=== PATIENT | female | born 1940 | race Caucasian/White ===

== ENCOUNTER 2022-07-30 17:14 | Inpatient (IN) ==
[2022-07-30 18:18] LABS: Basophils # 0.1 10*3/uL (0.0-0.2); Basophils % 0.2 % (0.0-0.8); Eosinophils % 0.2 % (0.00-10.9); Hematocrit 43.2 VOL% (35.7-47.0); Hemoglobin 13.9 GM/DL (12.0-16.0); Immature Granulocytes % 0.7 %; Immature Granulocytes Absolute 0.15 #; Lymphocytes # 0.5 10*3/uL (1.4-4.0); Lymphocytes % 2.1 % (21.3-54.2); Mean Corpuscular HGB Conc 32.2 GM/DL (32-36); Mean Corpuscular Volume 85.2 FL (87-102); Monocytes % 4.1 % (1.7-12.7); Neutrophils % 92.7 % (38.7-73.9); Platelet Count 307 T/CUMM (130-400); Red Blood Count 5.07 MC/CUMM (3.8-5.5)
[2022-07-30 18:27] LABS: INR 0.9; PT Patient Result 10.5 SECS (10.1-12.1); Partial Thromboplastin Time 27.1 SECS (23.7-32.9)
[2022-07-30 18:30] LABS: Albumin 3.3 G/DL (3.4-5.0); Bilirubin,Total 0.4 MG/DL (0.20-1.00); Calcium 9.1 MG/DL (8.5-10.1); Osmolality,Calculated 271.1 MOS/KG (273-304); Potassium 4.2 MMOL/L (3.5-5.1); Total Protein 6.1 G/DL (6.4-8.2)
[2022-07-30 18:54] LABS: Bacteria,Urine Many /HPF (Few); Squamous Epithelial Cell,Urine Occasional /HPF (0-10)
[2022-07-30 18:55] LABS: Bilirubin,Urine Negative (Negative); Blood, Urine Trace mg/dL (Negative); Glucose,Urine (UA) Negative (Negative); Ketones,Urine Negative (Negative); Nitrite,Urine Positive (Negative); Protein,Urine 100 mg/dL (Negative); Urine Appearance HAZY (Clear); Urine Color Yellow (Yellow); Urine Urobilinogen 0.2 eU/dL (<2.0)
[2022-07-30 19:12] LABS: Eosinophils 2 % (0-10); Total Cells Counted 100
[2022-07-30 19:13] LABS: Hypochromia Slight; Platelet Estimate Normal
[2022-07-30] MEDS ORDERED: cefTRIAXone 1,000 MG in SODIUM CHLORIDE 0.9% 100 ML IV STA (19:45)
[2022-07-30] MEDS ORDERED: SODIUM CHLORIDE 0.9% 500 ML IV STA (19:47)
[2022-07-30] MEDS ORDERED: ACETAMINOPHEN 325 MG TABLET PO PRN (20:09)
[2022-07-30] MEDS ORDERED: ONDANSETRON 4 MG/2 ML VIAL IV PRN (20:15)
[2022-07-30] MEDS: traZODone 50 MG TABLET PO SCH (20:55)
[2022-07-30] MEDS: MEMANTINE 10 MG TABLET PO SCH (20:55)
[2022-07-30] MEDS: traMADol 50 MG TABLET PO PRN (20:55)
[2022-07-30] MEDS: ENOXAPARIN 40 MG/0.4 ML SYRINGE SUBCUT SCH (20:57)
[2022-07-30] MEDS: DONEPEZIL 10 MG TABLET PO SCH (20:58)
[2022-07-30] MEDS: MELATONIN 3 MG TABLET PO SCH (20:58)
[2022-07-30] MEDS: OSELTAMIVIR 75 MG CAPSULE PO SCH (20:58)
[2022-07-30] MEDS: SODIUM CHLORIDE 0.9% 1,000 ML IV SCH (21:30)
[2022-07-30] MEDS: risperiDONE 0.5 MG TABLET PO SCH (21:40)
[2022-07-30] MEDS: THEOPHYLLINE ER 300 MG TABLET PO SCH (21:40)
[2022-07-30] MEDS: ALBUTEROL/IPRATROPIUM 3 ML NEB RESP TX SCH (23:35)
[2022-07-31] MEDS: ALBUTEROL/IPRATROPIUM 3 ML NEB RESP TX SCH ×5 (03:30→18:03)
[2022-07-31 05:00] LABS: Basophils % 0.2 % (0.0-0.8); Eosinophils % 0.1 % (0.00-10.9); Hematocrit 32.8 VOL% (35.7-47.0); Hemoglobin 10.5 GM/DL (12.0-16.0); Immature Granulocytes % 0.7 %; Immature Granulocytes Absolute 0.12 #; Lymphocytes % 6.3 % (21.3-54.2); Mean Corpuscular Volume 87.7 FL (87-102); Mean Platelet Volume 10.3 FL (9.6-12.0); Monocytes # 0.7 10*3/uL (0.11-0.8); Monocytes % 4.5 % (1.7-12.7); Neutrophils % 88.2 % (38.7-73.9); Platelet Count 226 T/CUMM (130-400); Red Blood Count 3.74 MC/CUMM (3.8-5.5); Red Cell Distribution Width 15.1 % (9.3-17.3); White Blood Count 16.1 T/CUMM (4-12)
[2022-07-31] MEDS: LEVOTHYROXINE 125 MCG TABLET PO SCH (05:55)
[2022-07-31 06:09] LABS: Calcium 7.7 MG/DL (8.5-10.1); Osmolality,Calculated 269.1 MOS/KG (273-304); Thyroid Stimulating Hormone 2.99 uIU/ml (0.358-3.74)
[2022-07-31] MEDS: risperiDONE 0.5 MG TABLET PO SCH ×2 (08:36→20:37)
[2022-07-31] MEDS: THEOPHYLLINE ER 300 MG TABLET PO SCH ×2 (08:36→20:38)
[2022-07-31] MEDS: DOCUSATE SODIUM 100 MG CAPSULE PO SCH (08:36)
[2022-07-31] MEDS: PANTOPRAZOLE 40 MG TABLET PO SCH (08:36)
[2022-07-31] MEDS: MEMANTINE 10 MG TABLET PO SCH ×2 (08:36→20:38)
[2022-07-31] MEDS: OSELTAMIVIR 75 MG CAPSULE PO SCH ×2 (08:36→20:36)
[2022-07-31] MEDS: LINACLOTIDE 145 MCG CAPSULE PO SCH (08:37)
[2022-07-31] MEDS: traZODone 50 MG TABLET PO SCH ×2 (08:37→20:37)
[2022-07-31] MEDS: cefTRIAXone 2,000 MG in SODIUM CHLORIDE 0.9% 100 ML IV SCH (08:40)
[2022-07-31] MEDS: POLYETHYLENE GLYCOL POWDER 17 GM PACK PO SCH (08:40)
[2022-07-31] MEDS: SODIUM CHLORIDE 0.9% 1,000 ML IV SCH ×2 (09:00→23:02)
[2022-07-31] MEDS: MELATONIN 3 MG TABLET PO SCH (20:36)
[2022-07-31] MEDS: ENOXAPARIN 40 MG/0.4 ML SYRINGE SUBCUT SCH (20:38)
[2022-07-31] MEDS: DONEPEZIL 10 MG TABLET PO SCH (20:38)
[2022-08-01] MEDS: ALBUTEROL/IPRATROPIUM 3 ML NEB RESP TX SCH ×6 (00:06→19:35)
[2022-08-01 05:13] LABS: Basophils % 0.4 % (0.0-0.8); Eosinophils # 0.2 10*3/uL (0.0-0.87); Eosinophils % 1.7 % (0.00-10.9); Hematocrit 41.7 VOL% (35.7-47.0); Immature Granulocytes % 1.1 %; Immature Granulocytes Absolute 0.11 #; Lymphocytes # 0.9 10*3/uL (1.4-4.0); Lymphocytes % 8.9 % (21.3-54.2); Mean Corpuscular HGB Conc 31.2 GM/DL (32-36); Mean Corpuscular Volume 88.7 FL (87-102); Monocytes # 0.7 10*3/uL (0.11-0.8); Monocytes % 6.9 % (1.7-12.7); Platelet Count 254 T/CUMM (130-400); Red Cell Distribution Width 15.1 % (9.3-17.3); White Blood Count 9.8 T/CUMM (4-12)
[2022-08-01 05:45] LABS: Calcium 9.4 MG/DL (8.5-10.1); Osmolality,Calculated 279.4 MOS/KG (273-304); Potassium 4.3 MMOL/L (3.5-5.1)
[2022-08-01] MEDS: LEVOTHYROXINE 125 MCG TABLET PO SCH (06:06)
[2022-08-01] MEDS: LINACLOTIDE 145 MCG CAPSULE PO SCH (09:34)
[2022-08-01] MEDS: DOCUSATE SODIUM 100 MG CAPSULE PO SCH (09:34)
[2022-08-01] MEDS: POLYETHYLENE GLYCOL POWDER 17 GM PACK PO SCH (09:34)
[2022-08-01] MEDS: traZODone 50 MG TABLET PO SCH ×2 (09:34→21:52)
[2022-08-01] MEDS: PANTOPRAZOLE 40 MG TABLET PO SCH (09:35)
[2022-08-01] MEDS: THEOPHYLLINE ER 300 MG TABLET PO SCH ×2 (09:35→21:55)
[2022-08-01] MEDS: MEMANTINE 10 MG TABLET PO SCH ×2 (09:35→21:52)
[2022-08-01] MEDS: risperiDONE 0.5 MG TABLET PO SCH ×2 (09:35→21:52)
[2022-08-01] MEDS: OSELTAMIVIR 75 MG CAPSULE PO SCH ×2 (09:35→21:52)
[2022-08-01] MEDS: cefTRIAXone 2,000 MG in SODIUM CHLORIDE 0.9% 100 ML IV SCH (09:41)
[2022-08-01] MEDS: AZITHROMYCIN INJ 500 MG in SODIUM CHLORIDE 0.9% 250 ML IV SCH (10:29)
[2022-08-01] MEDS: PIPERACILLIN/TAZOBACTAM 3,375 MG in SODIUM CHLORIDE 0.9% 100 ML IV SCH ×2 (11:52→17:33)
[2022-08-01] MEDS: POTASSIUM CHLORIDE 10 MEQ TABLET PO SCH ×2 (15:53→21:51)
[2022-08-01] MEDS: FUROSEMIDE 20 MG/2 ML VIAL IV SCH (15:54)
[2022-08-01] MEDS: MELATONIN 3 MG TABLET PO SCH (21:51)
[2022-08-01] MEDS: DONEPEZIL 10 MG TABLET PO SCH (21:52)
[2022-08-01] MEDS: ENOXAPARIN 40 MG/0.4 ML SYRINGE SUBCUT SCH (21:55)
[2022-08-02] MEDS: ALBUTEROL/IPRATROPIUM 3 ML NEB RESP TX SCH ×7 (00:20→23:00)
[2022-08-02] MEDS: PIPERACILLIN/TAZOBACTAM 3,375 MG in SODIUM CHLORIDE 0.9% 100 ML IV SCH ×3 (02:30→18:02)
[2022-08-02] MEDS: LEVOTHYROXINE 125 MCG TABLET PO SCH (05:30)
[2022-08-02 05:35] LABS: Basophils % 0.5 % (0.0-0.8); Eosinophils # 0.1 10*3/uL (0.0-0.87); Eosinophils % 1.7 % (0.00-10.9); Hematocrit 41.9 VOL% (35.7-47.0); Hemoglobin 12.9 GM/DL (12.0-16.0); Immature Granulocytes % 0.8 %; Immature Granulocytes Absolute 0.07 #; Lymphocytes # 0.7 10*3/uL (1.4-4.0); Lymphocytes % 7.8 % (21.3-54.2); Mean Corpuscular HGB Conc 30.8 GM/DL (32-36); Mean Corpuscular Volume 87.8 FL (87-102); Monocytes # 0.6 10*3/uL (0.11-0.8); Monocytes % 6.7 % (1.7-12.7); Neutrophils % 82.5 % (38.7-73.9); Platelet Count 267 T/CUMM (130-400); Red Blood Count 4.77 MC/CUMM (3.8-5.5); Red Cell Distribution Width 15.1 % (9.3-17.3); White Blood Count 8.4 T/CUMM (4-12)
[2022-08-02 06:01] LABS: Calcium 9.3 MG/DL (8.5-10.1); Osmolality,Calculated 270.8 MOS/KG (273-304); Potassium 4.1 MMOL/L (3.5-5.1)
[2022-08-02] MEDS: POLYETHYLENE GLYCOL POWDER 17 GM PACK PO SCH (08:24)
[2022-08-02] MEDS: DOCUSATE SODIUM 100 MG CAPSULE PO SCH (08:26)
[2022-08-02] MEDS: LINACLOTIDE 145 MCG CAPSULE PO SCH (08:26)
[2022-08-02] MEDS: traZODone 50 MG TABLET PO SCH ×2 (08:26→21:20)
[2022-08-02] MEDS: OSELTAMIVIR 75 MG CAPSULE PO SCH ×2 (08:26→21:21)
[2022-08-02] MEDS: risperiDONE 0.5 MG TABLET PO SCH ×2 (08:26→21:20)
[2022-08-02] MEDS: POTASSIUM CHLORIDE 10 MEQ TABLET PO SCH ×3 (08:26→21:20)
[2022-08-02] MEDS: THEOPHYLLINE ER 300 MG TABLET PO SCH ×2 (08:26→21:21)
[2022-08-02] MEDS: MEMANTINE 10 MG TABLET PO SCH ×2 (08:26→21:20)
[2022-08-02] MEDS: PANTOPRAZOLE 40 MG TABLET PO SCH (08:27)
[2022-08-02] MEDS: FUROSEMIDE 20 MG/2 ML VIAL IV SCH ×2 (08:29→16:00)
[2022-08-02] MEDS: AZITHROMYCIN INJ 500 MG in SODIUM CHLORIDE 0.9% 250 ML IV SCH (08:37)
[2022-08-02] MEDS: traMADol 50 MG TABLET PO PRN (08:41)
[2022-08-02] MEDS: ENOXAPARIN 40 MG/0.4 ML SYRINGE SUBCUT SCH (21:20)
[2022-08-02] MEDS: MELATONIN 3 MG TABLET PO SCH (21:20)
[2022-08-02] MEDS: DONEPEZIL 10 MG TABLET PO SCH (21:20)
[2022-08-03] MEDS: PIPERACILLIN/TAZOBACTAM 3,375 MG in SODIUM CHLORIDE 0.9% 100 ML IV SCH (02:05)
[2022-08-03] MEDS: LEVOTHYROXINE 125 MCG TABLET PO SCH (05:32)
[2022-08-03] MEDS: ALBUTEROL/IPRATROPIUM 3 ML NEB RESP TX SCH ×2 (06:08→07:10)
[2022-08-03 06:17] LABS: Basophils % 0.4 % (0.0-0.8); Eosinophils # 0.2 10*3/uL (0.0-0.87); Hematocrit 42.3 VOL% (35.7-47.0); Hemoglobin 13.3 GM/DL (12.0-16.0); Immature Granulocytes % 1.3 %; Immature Granulocytes Absolute 0.09 #; Lymphocytes # 1.1 10*3/uL (1.4-4.0); Lymphocytes % 15.6 % (21.3-54.2); Mean Corpuscular HGB Conc 31.4 GM/DL (32-36); Mean Corpuscular Volume 87.8 FL (87-102); Mean Platelet Volume 10.2 FL (9.6-12.0); Monocytes # 0.6 10*3/uL (0.11-0.8); Monocytes % 8.5 % (1.7-12.7); Neutrophils % 71.2 % (38.7-73.9); Platelet Count 287 T/CUMM (130-400); Red Blood Count 4.82 MC/CUMM (3.8-5.5); Red Cell Distribution Width 15.1 % (9.3-17.3); White Blood Count 6.7 T/CUMM (4-12)
[2022-08-03 06:37] LABS: Calcium 9.1 MG/DL (8.5-10.1); Osmolality,Calculated 271.8 MOS/KG (273-304); Potassium 4.3 MMOL/L (3.5-5.1)
[2022-08-03] MEDS: POLYETHYLENE GLYCOL POWDER 17 GM PACK PO SCH (09:29)
[2022-08-03] MEDS: traZODone 50 MG TABLET PO SCH (09:31)
[2022-08-03] MEDS: THEOPHYLLINE ER 300 MG TABLET PO SCH (09:31)
[2022-08-03] MEDS: DOCUSATE SODIUM 100 MG CAPSULE PO SCH (09:32)
[2022-08-03] MEDS: MEMANTINE 10 MG TABLET PO SCH (09:32)
[2022-08-03] MEDS: risperiDONE 0.5 MG TABLET PO SCH (09:32)
[2022-08-03] MEDS: LINACLOTIDE 145 MCG CAPSULE PO SCH (09:32)
[2022-08-03] MEDS: OSELTAMIVIR 75 MG CAPSULE PO SCH (09:32)
[2022-08-03] MEDS: traMADol 50 MG TABLET PO PRN (09:32)
[2022-08-03] MEDS: PANTOPRAZOLE 40 MG TABLET PO SCH (09:32)
[2022-08-03] MEDS: POTASSIUM CHLORIDE 10 MEQ TABLET PO SCH (09:32)
[2022-08-03] MEDS: AZITHROMYCIN INJ 500 MG in SODIUM CHLORIDE 0.9% 250 ML IV SCH (09:35)
[2022-08-03] MEDS: FUROSEMIDE 20 MG/2 ML VIAL IV SCH (09:35)
[2022-08-03 10:46] VITALS: BP 143/70
[2022-08-03] MEDS ORDERED: CEFUROXIME 500 MG TABLET PO SCH (21:00)
== END 2022-08-03 12:22 | DRG 193 ==
LOC: N.ED 17:14 → N.2E 20:07
PROVIDERS: ADMIT Hospitalist; ATTEND Hospitalist

== ENCOUNTER 2022-09-09 00:18 | Inpatient (IN) ==
[2022-09-09 00:57] LABS: Basophils % 0.3 % (0.0-0.8); Eosinophils # 0.1 10*3/uL (0.0-0.87); Hematocrit 40.6 VOL% (35.7-47.0); Hemoglobin 13.2 GM/DL (12.0-16.0); Immature Granulocytes % 1.3 %; Immature Granulocytes Absolute 0.16 #; Lymphocytes # 1.1 10*3/uL (1.4-4.0); Lymphocytes % 8.6 % (21.3-54.2); Mean Corpuscular HGB Conc 32.5 GM/DL (32-36); Mean Corpuscular Volume 87.9 FL (87-102); Mean Platelet Volume 9.7 FL (9.6-12.0); Monocytes # 1.2 10*3/uL (0.11-0.8); Monocytes % 9.7 % (1.7-12.7); Neutrophils % 79.1 % (38.7-73.9); Platelet Count 326 T/CUMM (130-400); Red Blood Count 4.62 MC/CUMM (3.8-5.5); Red Cell Distribution Width 14.3 % (9.3-17.3); White Blood Count 12.52 T/CUMM (4-12)
[2022-09-09 01:14] LABS: Alanine Aminotransferase < 9 U/L (13-56); Albumin 2.9 G/DL (3.4-5.0); Alkaline Phosphatase 97 U/L (45-117); Aspartate Amino Transferase 4 U/L (0-37); Bilirubin,Total < 0.39 MG/DL (0.20-1.00); Blood Urea Nitrogen 16 MG/DL (7-18); Calcium 9.3 MG/DL (8.5-10.1); Carbon Dioxide 31 MMOL/L (21-32); Chloride 100 MMOL/L (98-107); Glucose 123 MG/DL (74-106); Osmolality,Calculated 278.5 MOS/KG (273-304); Potassium 4.8 MMOL/L (3.5-5.1); Sodium 139 MMOL/L (136-145); Total Protein 5.8 G/DL (6.4-8.2)
[2022-09-09 01:21] LABS: INR 0.9; Partial Thromboplastin Time 20.8 SECS (23.7-32.9)
[2022-09-09] MEDS ORDERED: ASPIRIN 300 MG SUPP RECTAL STA (02:26)
[2022-09-09] MEDS ORDERED: ONDANSETRON 4 MG/2 ML VIAL IV PRN (04:03)
[2022-09-09] MEDS ORDERED: GLUCAGON 1 MG VIAL IM PRN (04:03)
[2022-09-09] MEDS ORDERED: DEXTROSE 10% 250 ML BAG IV PRN (04:44)
[2022-09-09] MEDS: SODIUM CHLORIDE 0.9% 1,000 ML IV SCH ×2 (05:00→19:00)
[2022-09-09 06:48] LABS: Bacteria,Urine Many /HPF (Few); Mucus,Urine Occasional /LPF (Occasional); Squamous Epithelial Cell,Urine Occasional /HPF (0-10)
[2022-09-09 06:49] LABS: Bilirubin,Urine Negative (Negative); Blood, Urine Small mg/dL (Negative); Glucose,Urine (UA) Negative (Negative); Ketones,Urine Negative (Negative); Nitrite,Urine Negative (Negative); Protein,Urine 30 mg/dL (Negative); Urine Appearance Cloudy (Clear); Urine Color Yellow (Yellow); Urine Specific Gravity 1.025 (1.001-1.035); Urine Urobilinogen 0.2 eU/dL (<2.0)
[2022-09-09] MEDS: INSULIN LISPRO 100 UNIT/ML SUBCUT SCH ×4 (07:36→21:06)
[2022-09-09] MEDS: ALBUTEROL/IPRATROPIUM 3 ML NEB RESP TX SCH ×3 (08:07→20:15)
[2022-09-09] MEDS ORDERED: ASPIRIN 300 MG SUPP RECTAL SCH (09:00)
[2022-09-09 09:20] LABS: Risk Ratio 3.69; Thyroid Stimulating Hormone 1.02 uIU/ml (0.358-3.74); VLDL Cholesterol 14.2 MG/DL
[2022-09-09] MEDS: PANTOPRAZOLE 40 MG TABLET PO SCH (10:35)
[2022-09-09] MEDS: cefTRIAXone 2,000 MG in SODIUM CHLORIDE 0.9% 100 ML IV SCH (10:44)
[2022-09-09] MEDS ORDERED: FUROSEMIDE 40 MG/4 ML VIAL IV ONE (21:24)
[2022-09-09] MEDS: ATORVASTATIN 40 MG TABLET PO SCH (22:41)
[2022-09-10] MEDS: ALBUTEROL/IPRATROPIUM 3 ML NEB RESP TX SCH ×4 (00:17→20:02)
[2022-09-10 06:40] LABS: Basophils % 0.3 % (0.0-0.8); Eosinophils # 0.1 10*3/uL (0.0-0.87); Eosinophils % 1.2 % (0.00-10.9); Hematocrit 46.3 VOL% (35.7-47.0); Hemoglobin 14.7 GM/DL (12.0-16.0); Immature Granulocytes % 0.9 %; Lymphocytes % 8.3 % (21.3-54.2); Mean Corpuscular HGB Conc 31.7 GM/DL (32-36); Mean Corpuscular Volume 89.4 FL (87-102); Mean Platelet Volume 9.8 FL (9.6-12.0); Monocytes % 8.9 % (1.7-12.7); Neutrophils % 80.4 % (38.7-73.9); Platelet Count 371 T/CUMM (130-400); Red Blood Count 5.18 MC/CUMM (3.8-5.5); Red Cell Distribution Width 14.1 % (9.3-17.3); White Blood Count 11.62 T/CUMM (4-12)
[2022-09-10 07:07] LABS: Albumin 3.1 G/DL (3.4-5.0); Bilirubin,Total 0.4 MG/DL (0.20-1.00); Osmolality,Calculated 282.1 MOS/KG (273-304); Potassium 3.9 MMOL/L (3.5-5.1); Total Protein 7.5 G/DL (6.4-8.2)
[2022-09-10] MEDS: INSULIN LISPRO 100 UNIT/ML SUBCUT SCH ×4 (07:45→20:22)
[2022-09-10] MEDS: cefTRIAXone 2,000 MG in SODIUM CHLORIDE 0.9% 100 ML IV SCH (11:29)
[2022-09-10] MEDS: AZITHROMYCIN INJ 250 MG in SODIUM CHLORIDE 0.9% 250 ML IV SCH (12:07)
[2022-09-10] MEDS: PANTOPRAZOLE 40 MG TABLET PO SCH (13:04)
[2022-09-10] MEDS: CLOPIDOGREL 75 MG TABLET PO SCH (13:04)
[2022-09-10] MEDS: ATORVASTATIN 40 MG TABLET PO SCH (20:22)
[2022-09-10] MEDS: hydrALAZINE 20 MG/1 ML VIAL IV PRN (21:38)
[2022-09-11] MEDS: ALBUTEROL/IPRATROPIUM 3 ML NEB RESP TX SCH ×4 (00:08→19:15)
[2022-09-11 04:51] LABS: Basophils # 0.1 10*3/uL (0.0-0.2); Basophils % 0.4 % (0.0-0.8); Eosinophils # 0.1 10*3/uL (0.0-0.87); Hemoglobin 13.7 GM/DL (12.0-16.0); Immature Granulocytes % 1.2 %; Immature Granulocytes Absolute 0.14 #; Lymphocytes # 0.8 10*3/uL (1.4-4.0); Lymphocytes % 6.8 % (21.3-54.2); Mean Corpuscular HGB Conc 31.1 GM/DL (32-36); Mean Corpuscular Volume 88.5 FL (87-102); Mean Platelet Volume 9.9 FL (9.6-12.0); Monocytes % 8.8 % (1.7-12.7); Neutrophils % 81.8 % (38.7-73.9); Platelet Count 412 T/CUMM (130-400); Red Blood Count 4.97 MC/CUMM (3.8-5.5); Red Cell Distribution Width 14.3 % (9.3-17.3); White Blood Count 11.75 T/CUMM (4-12)
[2022-09-11 05:12] LABS: Calcium 10.1 MG/DL (8.5-10.1); Potassium 3.9 MMOL/L (3.5-5.1)
[2022-09-11] MEDS: INSULIN LISPRO 100 UNIT/ML SUBCUT SCH ×4 (08:10→21:17)
[2022-09-11] MEDS: CLOPIDOGREL 75 MG TABLET PO SCH (09:35)
[2022-09-11] MEDS: cefTRIAXone 2,000 MG in SODIUM CHLORIDE 0.9% 100 ML IV SCH (09:36)
[2022-09-11] MEDS: PANTOPRAZOLE 40 MG TABLET PO SCH (10:19)
[2022-09-11] MEDS: PANTOPRAZOLE 40 MG VIAL IV SCH (10:51)
[2022-09-11] MEDS: AZITHROMYCIN INJ 250 MG in SODIUM CHLORIDE 0.9% 250 ML IV SCH (10:52)
[2022-09-11] MEDS: hydrALAZINE 20 MG/1 ML VIAL IV PRN (10:53)
[2022-09-11] MEDS: ATORVASTATIN 40 MG TABLET PO SCH (21:22)
[2022-09-12] MEDS: ALBUTEROL/IPRATROPIUM 3 ML NEB RESP TX SCH ×4 (00:05→20:11)
[2022-09-12 05:26] LABS: Basophils % 0.3 % (0.0-0.8); Eosinophils # 0.2 10*3/uL (0.0-0.87); Eosinophils % 1.6 % (0.00-10.9); Hematocrit 46.5 VOL% (35.7-47.0); Hemoglobin 14.4 GM/DL (12.0-16.0); Immature Granulocytes % 1.1 %; Immature Granulocytes Absolute 0.13 #; Lymphocytes # 0.9 10*3/uL (1.4-4.0); Lymphocytes % 7.6 % (21.3-54.2); Mean Corpuscular Volume 89.8 FL (87-102); Mean Platelet Volume 9.5 FL (9.6-12.0); Monocytes # 1.3 10*3/uL (0.11-0.8); Monocytes % 10.9 % (1.7-12.7); Neutrophils % 78.5 % (38.7-73.9); Platelet Count 407 T/CUMM (130-400); Red Blood Count 5.18 MC/CUMM (3.8-5.5); Red Cell Distribution Width 14.4 % (9.3-17.3); White Blood Count 11.48 T/CUMM (4-12)
[2022-09-12 05:48] LABS: Calcium 10.2 MG/DL (8.5-10.1); Osmolality,Calculated 291.7 MOS/KG (273-304); Potassium 4.1 MMOL/L (3.5-5.1)
[2022-09-12] MEDS: INSULIN LISPRO 100 UNIT/ML SUBCUT SCH ×4 (08:54→22:16)
[2022-09-12] MEDS: PANTOPRAZOLE 40 MG VIAL IV SCH (08:55)
[2022-09-12] MEDS: cefTRIAXone 2,000 MG in SODIUM CHLORIDE 0.9% 100 ML IV SCH (09:05)
[2022-09-12] MEDS: AZITHROMYCIN INJ 250 MG in SODIUM CHLORIDE 0.9% 250 ML IV SCH (13:16)
[2022-09-12] MEDS: hydrALAZINE 20 MG/1 ML VIAL IV PRN (13:18)
[2022-09-12] MEDS: ATORVASTATIN 40 MG TABLET PO SCH (22:19)
[2022-09-13] MEDS: ALBUTEROL/IPRATROPIUM 3 ML NEB RESP TX SCH ×4 (02:18→21:46)
[2022-09-13 05:39] LABS: Basophils # 0.1 10*3/uL (0.0-0.2); Basophils % 0.5 % (0.0-0.8); Eosinophils # 0.3 10*3/uL (0.0-0.87); Eosinophils % 2.3 % (0.00-10.9); Hematocrit 44.9 VOL% (35.7-47.0); Hemoglobin 13.9 GM/DL (12.0-16.0); Immature Granulocytes % 1.3 %; Immature Granulocytes Absolute 0.14 #; Lymphocytes % 8.6 % (21.3-54.2); Mean Corpuscular Volume 91.8 FL (87-102); Mean Platelet Volume 10.1 FL (9.6-12.0); Monocytes # 1.1 10*3/uL (0.11-0.8); Neutrophils % 77.3 % (38.7-73.9); Platelet Count 416 T/CUMM (130-400); Red Blood Count 4.89 MC/CUMM (3.8-5.5); Red Cell Distribution Width 14.5 % (9.3-17.3)
[2022-09-13 06:08] LABS: Calcium 10.3 MG/DL (8.5-10.1); Osmolality,Calculated 291.7 MOS/KG (273-304); Potassium 4.2 MMOL/L (3.5-5.1)
[2022-09-13] MEDS: INSULIN LISPRO 100 UNIT/ML SUBCUT SCH ×4 (08:14→21:47)
[2022-09-13] MEDS: cefTRIAXone 2,000 MG in SODIUM CHLORIDE 0.9% 100 ML IV SCH (08:53)
[2022-09-13] MEDS: PANTOPRAZOLE 40 MG VIAL IV SCH (08:54)
[2022-09-13] MEDS: AZITHROMYCIN INJ 250 MG in SODIUM CHLORIDE 0.9% 250 ML IV SCH (12:19)
[2022-09-13 15:10] LABS: Specimen Source THROAT
[2022-09-13] MEDS: ATORVASTATIN 40 MG TABLET PO SCH (20:43)
[2022-09-14] MEDS: ALBUTEROL/IPRATROPIUM 3 ML NEB RESP TX SCH ×4 (00:40→18:56)
[2022-09-14 05:20] LABS: Basophils # 0.1 10*3/uL (0.0-0.2); Basophils % 0.5 % (0.0-0.8); Eosinophils # 0.3 10*3/uL (0.0-0.87); Eosinophils % 2.5 % (0.00-10.9); Hematocrit 46.5 VOL% (35.7-47.0); Hemoglobin 14.2 GM/DL (12.0-16.0); Immature Granulocytes % 1.2 %; Immature Granulocytes Absolute 0.15 #; Lymphocytes # 1.1 10*3/uL (1.4-4.0); Lymphocytes % 8.1 % (21.3-54.2); Mean Corpuscular HGB Conc 30.5 GM/DL (32-36); Mean Corpuscular Volume 93.6 FL (87-102); Mean Platelet Volume 9.9 FL (9.6-12.0); Monocytes # 1.1 10*3/uL (0.11-0.8); Monocytes % 8.2 % (1.7-12.7); Neutrophils % 79.5 % (38.7-73.9); Platelet Count 382 T/CUMM (130-400); Red Blood Count 4.97 MC/CUMM (3.8-5.5); Red Cell Distribution Width 14.2 % (9.3-17.3); White Blood Count 12.99 T/CUMM (4-12)
[2022-09-14 05:35] LABS: Osmolality,Calculated 286.3 MOS/KG (273-304); Potassium 4.2 MMOL/L (3.5-5.1)
[2022-09-14] MEDS: INSULIN LISPRO 100 UNIT/ML SUBCUT SCH ×4 (07:42→21:40)
[2022-09-14] MEDS: PANTOPRAZOLE 40 MG VIAL IV SCH (08:44)
[2022-09-14] MEDS: cefTRIAXone 2,000 MG in SODIUM CHLORIDE 0.9% 100 ML IV SCH (08:45)
[2022-09-14] MEDS: AZITHROMYCIN INJ 250 MG in SODIUM CHLORIDE 0.9% 250 ML IV SCH (13:23)
[2022-09-14] MEDS: ATORVASTATIN 40 MG TABLET PO SCH (21:40)
[2022-09-15] MEDS: ALBUTEROL/IPRATROPIUM 3 ML NEB RESP TX SCH ×4 (00:03→19:09)
[2022-09-15 06:10] LABS: Calcium 9.6 MG/DL (8.5-10.1); Osmolality,Calculated 284.1 MOS/KG (273-304); Potassium 4.2 MMOL/L (3.5-5.1)
[2022-09-15 06:22] LABS: Basophils # 0.1 10*3/uL (0.0-0.2); Basophils % 0.6 % (0.0-0.8); Eosinophils # 0.3 10*3/uL (0.0-0.87); Hematocrit 44.3 VOL% (35.7-47.0); Hemoglobin 13.4 GM/DL (12.0-16.0); Immature Granulocytes % 1.4 %; Immature Granulocytes Absolute 0.15 #; Lymphocytes # 1.1 10*3/uL (1.4-4.0); Lymphocytes % 10.4 % (21.3-54.2); Mean Corpuscular HGB Conc 30.2 GM/DL (32-36); Mean Corpuscular Volume 93.1 FL (87-102); Mean Platelet Volume 10.4 FL (9.6-12.0); Monocytes # 0.8 10*3/uL (0.11-0.8); Monocytes % 7.7 % (1.7-12.7); Neutrophils % 76.9 % (38.7-73.9); Platelet Count 371 T/CUMM (130-400); Red Blood Count 4.76 MC/CUMM (3.8-5.5); Red Cell Distribution Width 14.1 % (9.3-17.3); White Blood Count 10.53 T/CUMM (4-12)
[2022-09-15] MEDS: PANTOPRAZOLE 40 MG VIAL IV SCH (08:36)
[2022-09-15] MEDS: INSULIN LISPRO 100 UNIT/ML SUBCUT SCH ×4 (08:37→20:09)
[2022-09-15] MEDS: cefTRIAXone 2,000 MG in SODIUM CHLORIDE 0.9% 100 ML IV SCH (08:38)
[2022-09-15] MEDS: SPIRONOLACTONE 25 MG TABLET PO SCH (12:12)
[2022-09-15] MEDS: ATORVASTATIN 40 MG TABLET PO SCH (20:10)
[2022-09-16] MEDS: ALBUTEROL/IPRATROPIUM 3 ML NEB RESP TX SCH ×4 (00:35→19:35)
[2022-09-16 05:24] LABS: Basophils # 0.1 10*3/uL (0.0-0.2); Basophils % 0.4 % (0.0-0.8); Eosinophils # 0.3 10*3/uL (0.0-0.87); Eosinophils % 2.5 % (0.00-10.9); Hematocrit 44.7 VOL% (35.7-47.0); Immature Granulocytes % 1.3 %; Immature Granulocytes Absolute 0.16 #; Lymphocytes # 0.9 10*3/uL (1.4-4.0); Lymphocytes % 7.3 % (21.3-54.2); Mean Corpuscular HGB Conc 31.3 GM/DL (32-36); Mean Corpuscular Volume 92.2 FL (87-102); Mean Platelet Volume 10.2 FL (9.6-12.0); Monocytes # 0.8 10*3/uL (0.11-0.8); Monocytes % 6.9 % (1.7-12.7); Neutrophils % 81.6 % (38.7-73.9); Platelet Count 349 T/CUMM (130-400); Red Blood Count 4.85 MC/CUMM (3.8-5.5); Red Cell Distribution Width 13.7 % (9.3-17.3); White Blood Count 12.12 T/CUMM (4-12)
[2022-09-16 05:52] LABS: Calcium 9.6 MG/DL (8.5-10.1); Osmolality,Calculated 276.5 MOS/KG (273-304); Potassium 4.2 MMOL/L (3.5-5.1)
[2022-09-16] MEDS: INSULIN LISPRO 100 UNIT/ML SUBCUT SCH ×4 (08:07→20:56)
[2022-09-16] MEDS: PANTOPRAZOLE 40 MG VIAL IV SCH (09:15)
[2022-09-16] MEDS: cefTRIAXone 2,000 MG in SODIUM CHLORIDE 0.9% 100 ML IV SCH (09:15)
[2022-09-16] MEDS: SPIRONOLACTONE 25 MG TABLET PO SCH (09:17)
[2022-09-16] MEDS: LACTATED RINGERS 1,000 ML IV SCH (18:33)
[2022-09-16] MEDS: ATORVASTATIN 40 MG TABLET PO SCH (20:55)
[2022-09-17] MEDS: ALBUTEROL/IPRATROPIUM 3 ML NEB RESP TX SCH ×4 (00:48→20:04)
[2022-09-17 06:12] LABS: Basophils # 0.1 10*3/uL (0.0-0.2); Basophils % 0.5 % (0.0-0.8); Eosinophils # 0.2 10*3/uL (0.0-0.87); Eosinophils % 2.3 % (0.00-10.9); Hematocrit 42.6 VOL% (35.7-47.0); Hemoglobin 13.1 GM/DL (12.0-16.0); Immature Granulocytes % 1.1 %; Immature Granulocytes Absolute 0.11 #; Lymphocytes # 0.9 10*3/uL (1.4-4.0); Lymphocytes % 9.6 % (21.3-54.2); Mean Corpuscular HGB Conc 30.8 GM/DL (32-36); Mean Corpuscular Volume 92.6 FL (87-102); Mean Platelet Volume 10.5 FL (9.6-12.0); Monocytes # 0.7 10*3/uL (0.11-0.8); Monocytes % 6.7 % (1.7-12.7); Neutrophils % 79.8 % (38.7-73.9); Platelet Count 345 T/CUMM (130-400); Red Cell Distribution Width 13.8 % (9.3-17.3); White Blood Count 9.73 T/CUMM (4-12)
[2022-09-17 06:37] LABS: Calcium 9.2 MG/DL (8.5-10.1); Osmolality,Calculated 277.4 MOS/KG (273-304); Potassium 3.9 MMOL/L (3.5-5.1)
[2022-09-17] MEDS: INSULIN LISPRO 100 UNIT/ML SUBCUT SCH ×4 (07:42→22:28)
[2022-09-17] MEDS: SPIRONOLACTONE 25 MG TABLET PO SCH (10:13)
[2022-09-17] MEDS: PANTOPRAZOLE 40 MG VIAL IV SCH (10:15)
[2022-09-17] MEDS: LACTATED RINGERS 1,000 ML IV SCH (10:22)
[2022-09-17] MEDS: ATORVASTATIN 40 MG TABLET PO SCH (20:51)
[2022-09-18] MEDS: LACTATED RINGERS 1,000 ML IV SCH ×2 (00:22→15:16)
[2022-09-18] MEDS: ALBUTEROL/IPRATROPIUM 3 ML NEB RESP TX SCH ×4 (01:26→19:39)
[2022-09-18 05:47] LABS: Basophils # 0.1 10*3/uL (0.0-0.2); Basophils % 0.4 % (0.0-0.8); Eosinophils # 0.2 10*3/uL (0.0-0.87); Eosinophils % 1.5 % (0.00-10.9); Hematocrit 42.3 VOL% (35.7-47.0); Hemoglobin 12.9 GM/DL (12.0-16.0); Immature Granulocytes % 1.2 %; Immature Granulocytes Absolute 0.14 #; Lymphocytes # 0.9 10*3/uL (1.4-4.0); Lymphocytes % 7.4 % (21.3-54.2); Mean Corpuscular HGB Conc 30.5 GM/DL (32-36); Mean Corpuscular Volume 90.6 FL (87-102); Mean Platelet Volume 10.6 FL (9.6-12.0); Monocytes # 0.7 10*3/uL (0.11-0.8); Monocytes % 5.7 % (1.7-12.7); Neutrophils % 83.8 % (38.7-73.9); Platelet Count 360 T/CUMM (130-400); Red Blood Count 4.67 MC/CUMM (3.8-5.5); Red Cell Distribution Width 13.8 % (9.3-17.3)
[2022-09-18 06:15] LABS: Osmolality,Calculated 275.7 MOS/KG (273-304); Potassium 4.2 MMOL/L (3.5-5.1)
[2022-09-18] MEDS ORDERED: ACETAMINOPHEN 650 MG SUPP RECTAL PRN (09:15)
[2022-09-18] MEDS: INSULIN LISPRO 100 UNIT/ML SUBCUT SCH ×4 (09:46→22:05)
[2022-09-18] MEDS: SPIRONOLACTONE 25 MG TABLET PO SCH (09:46)
[2022-09-18] MEDS: PANTOPRAZOLE 40 MG VIAL IV SCH (10:41)
[2022-09-18] MEDS: ATORVASTATIN 40 MG TABLET PO SCH (22:06)
[2022-09-19] MEDS: ALBUTEROL/IPRATROPIUM 3 ML NEB RESP TX SCH ×4 (02:01→19:25)
[2022-09-19 06:06] LABS: Basophils # 0.1 10*3/uL (0.0-0.2); Basophils % 0.6 % (0.0-0.8); Eosinophils # 0.2 10*3/uL (0.0-0.87); Eosinophils % 1.7 % (0.00-10.9); Hemoglobin 13.1 GM/DL (12.0-16.0); Immature Granulocytes % 0.8 %; Immature Granulocytes Absolute 0.07 #; Lymphocytes # 0.8 10*3/uL (1.4-4.0); Lymphocytes % 9.5 % (21.3-54.2); Mean Corpuscular Volume 90.7 FL (87-102); Monocytes # 0.6 10*3/uL (0.11-0.8); Monocytes % 6.7 % (1.7-12.7); Neutrophils % 80.7 % (38.7-73.9); Platelet Count 315 T/CUMM (130-400); Red Blood Count 4.52 MC/CUMM (3.8-5.5); Red Cell Distribution Width 14.1 % (9.3-17.3); White Blood Count 8.78 T/CUMM (4-12)
[2022-09-19] MEDS: LACTATED RINGERS 1,000 ML IV SCH ×3 (06:09→18:04)
[2022-09-19 06:14] LABS: PT Patient Result 10.8 SECS (10.1-12.1)
[2022-09-19 06:38] LABS: Calcium 8.9 MG/DL (8.5-10.1); Osmolality,Calculated 278.3 MOS/KG (273-304); Potassium 3.9 MMOL/L (3.5-5.1)
[2022-09-19] MEDS: INSULIN LISPRO 100 UNIT/ML SUBCUT SCH ×4 (09:03→21:19)
[2022-09-19] MEDS ORDERED: propofoL 200 MG/20 ML VIAL IV ONE (10:02)
[2022-09-19] MEDS ORDERED: LIDOCAINE 2% 5 ML VIAL ONE (10:02)
[2022-09-19] MEDS ORDERED: ETOMIDATE 20 MG/10 ML VIAL IV ONE (10:12)
[2022-09-19] MEDS: SPIRONOLACTONE 25 MG TABLET PO SCH (17:55)
[2022-09-19] MEDS: PANTOPRAZOLE 40 MG VIAL IV SCH (17:56)
[2022-09-19] MEDS: ATORVASTATIN 40 MG TABLET PO SCH (20:51)
[2022-09-20] MEDS: ALBUTEROL/IPRATROPIUM 3 ML NEB RESP TX SCH ×4 (00:35→19:30)
[2022-09-20 05:29] LABS: Basophils % 0.5 % (0.0-0.8); Eosinophils # 0.2 10*3/uL (0.0-0.87); Eosinophils % 1.8 % (0.00-10.9); Hematocrit 40.4 VOL% (35.7-47.0); Hemoglobin 12.4 GM/DL (12.0-16.0); Immature Granulocytes Absolute 0.08 #; Lymphocytes # 0.8 10*3/uL (1.4-4.0); Lymphocytes % 10.2 % (21.3-54.2); Mean Corpuscular HGB Conc 30.7 GM/DL (32-36); Mean Corpuscular Volume 90.8 FL (87-102); Mean Platelet Volume 10.9 FL (9.6-12.0); Monocytes # 0.6 10*3/uL (0.11-0.8); Monocytes % 7.2 % (1.7-12.7); Neutrophils % 79.3 % (38.7-73.9); Platelet Count 289 T/CUMM (130-400); Red Blood Count 4.45 MC/CUMM (3.8-5.5); Red Cell Distribution Width 13.9 % (9.3-17.3); White Blood Count 8.25 T/CUMM (4-12)
[2022-09-20 05:55] LABS: Calcium 8.8 MG/DL (8.5-10.1); Osmolality,Calculated 275.4 MOS/KG (273-304)
[2022-09-20] MEDS: INSULIN LISPRO 100 UNIT/ML SUBCUT SCH ×4 (08:13→21:17)
[2022-09-20] MEDS: PANTOPRAZOLE 40 MG VIAL IV SCH (08:33)
[2022-09-20] MEDS: LACTATED RINGERS 1,000 ML IV SCH ×3 (08:33→21:45)
[2022-09-20] MEDS: SPIRONOLACTONE 25 MG TABLET PO SCH (08:33)
[2022-09-20] MEDS: ATORVASTATIN 40 MG TABLET PO SCH (21:16)
[2022-09-21] MEDS: ALBUTEROL/IPRATROPIUM 3 ML NEB RESP TX SCH ×2 (00:53→07:18)
[2022-09-21] MEDS: INSULIN LISPRO 100 UNIT/ML SUBCUT SCH ×2 (07:43→11:04)
[2022-09-21] MEDS ORDERED: OMEPRAZOLE ODT 20 MG TABLET PEG SCH (09:00)
[2022-09-21] MEDS: SPIRONOLACTONE 25 MG TABLET PO SCH (10:06)
[2022-09-21] MEDS: LACTATED RINGERS 1,000 ML IV SCH (10:06)
[2022-09-21 11:57] VITALS: BP 150/78
== END 2022-09-21 13:18 | DRG 64 ==
LOC: N.EDINP 00:18 → N.ED 00:18 → SUATTDRO 03:59 → N.2W 15:12 → SUATTDRO 09-11 09:54 → N.2E 09-13 18:22
PROVIDERS: ADMIT Emergency Medicine; ATTEND Emergency Medicine
PROC: EGDWPEG (ICD-10-PCS; 2022-09-19 09:20)